=== PATIENT | male | born 1980 | race Hispanic/Latino ===

== ENCOUNTER 2016-10-23 04:13 | Emergency (ER) | payer OTHER ==
[~2016-10-23] VITALS: Ht 165.1 cm; Wt 87.9 kg
[2016-10-23 05:23] VITALS: BP 140/79
== END 2016-10-23 05:24 | disposition home or self-care (01) ==
LOC: EDBD 04:13 → EME 04:13
DX: S43.402A Unspecified sprain of left shoulder joint, initial encounter (principal); S70.02XA Contusion of left hip, initial encounter; V49.40XA Driver injured in collision with unspecified motor vehicles in traffic accident, initial encounter
CPT/HCPCS: 71020; 73030; 73502; 73552; 99281; 99284